=== PATIENT | male | born 1950 | race Caucasian/White ===

== ENCOUNTER → 2018-05-24 | Outpatient (CLI) | payer MEDICARE ==
--- NOTE | 2018-05-24 20:06 | Diagnostic Imaging Report ---
EXAMINATION: Left wrist at 3:24 p.m. INDICATION: Left wrist pain. Three views were obtained. There are no prior studies available for comparison. FINDINGS: There is a thin band of increased density extending transversely through the neck of the distal ulna. This may represent a minimal impaction fracture, although the age of this injury is indeterminate. Clinical followup is recommended. No other fracture or acute bony abnormality is noted. The radiocarpal joint is fairly well maintained. The soft tissues are unremarkable. IMPRESSION: 1. There is a minimal impaction fracture of the distal radial metaphysis. The age of this injury is indeterminate. Clinical followup is recommended. 2. There is no acute bony abnormality identified otherwise. Dictated by: Dictated on workstation # [id number]
== END ==
LOC: RAD FS 15:19
PROVIDERS: ATTEND Family Medicine
DX: M25.532 Pain in left wrist (principal)
CPT/HCPCS: 73110